=== PATIENT | male | born 1940 | race Caucasian/White ===

== ENCOUNTER 2017-04-07 22:54 | Emergency (ER) | payer MEDICARE, OTHER | END 2017-04-08 01:09 | disposition home or self-care (01) | LOC: FER 22:54 | DX: H60.92 Unspecified otitis externa, left ear (principal); H60.332 Swimmer's ear, left ear; I10 Essential (primary) hypertension; Z79.82 Long term (current) use of aspirin; Z79.899 Other long term (current) drug therapy; Z95.5 Presence of coronary angioplasty implant and graft | CPT/HCPCS: 99282 ==

== ENCOUNTER 2021-04-26 12:56 | Emergency (ER) | payer OTHER ==
[~2021-04-26 12:56] MED LIST: CIPRO500 M1 PO; CIPRO500 MG PO; FLOMAX0.4 MG PO; MEDROL 4MG DOSEP4 MG PO; VENTOLIN HFA IN18 GM INH
[2021-04-26 14:06] LABS: BASOPHIL 0.5 % (0-2); BILIRUBIN 2+ mg/dL (NEGATIVE); BLOOD 3+ Ery/uL (NEGATIVE); GLUCOSE (U) TRACE mg/dL (NORMAL); HCT 41.2 % (42.0-52.0); HGB 13.8 g/dl (13.2-18.0); LEUKOCYTES 2+ Leu/uL (NEGATIVE); MCH 29.9 pg (25.0-31.0); MCHC 33.5 g/dL (32.0-36.0); MCV 89.2 fL (78.0-100.0); MONOCYTE 9.5 % (0-12); MPV 10.1 fL (6.0-9.5); NEUTROPHIL 59.7 % (41-80); NITRITE POSITIVE (NEGATIVE); NRBC 0; PLT 151 K/uL (150-400); PROTEIN 3+ mg/dL (NEGATIVE); RBC 4.62 M/uL (4.70-6.00); RDW 13.3 % (11.5-14.0); SPECIFIC GRAVITY >=1.030 (1.001-1.030); WBC 7.3 K/uL (4.0-10.5); pH 6.5 (5.0-9.0)
[2021-04-26 14:09] LABS: CLARITY CLOUDY (CLEAR); COLOR AMBER (YELLOW)
[2021-04-26 14:12] LABS: BACTERIA TRACE; URINARY RBC TNTC
[2021-04-26 14:26] LABS: ALBUMIN 3.9 g/dL (3.4-5.0); BILIRUBIN - TOTAL 1.3 mg/dL (0.2-1.0); BUN/CREAT RATIO (CALC) 19.7 RATIO; CREATININE 0.76 mg/dL (0.67-1.17); GLOBULIN (CALCULATION) 3.9 g/dL; POTASSIUM 4.1 mmol/L (3.5-5.1); TOTAL PROTEIN 7.8 g/dL (6.4-8.2)
[2021-04-26] MEDS ORDERED: PYRIDIUM200 MG PO (18:51)
[2021-04-26] MEDS ORDERED: AUGMENTIN 500-1 EACH PO (18:51)
== END 2021-04-26 19:45 | disposition home or self-care (01) ==
LOC: FER 12:56
PROVIDERS: Emergency Medicine
DX: N30.91 Cystitis, unspecified with hematuria (principal); E11.9 Type 2 diabetes mellitus without complications; Z79.84 Long term (current) use of oral hypoglycemic drugs
CPT/HCPCS: 36415; 80053; 81001; 85025; 87076; 87088; 87186; 96365; J0696; J7030

== ENCOUNTER 2021-08-06 18:21 | Emergency (ER) | payer OTHER ==
[~2021-08-06 18:21] MED LIST changes: +AUGMENTIN 500-1 EACH PO; +PYRIDIUM200 MG PO
[2021-08-06 19:27] LABS: BASOPHIL 0.2 % (0-2); BILIRUBIN 1+ mg/dL (NEGATIVE); BLOOD 3+ Ery/uL (NEGATIVE); CLARITY CLOUDY (CLEAR); COLOR RED (YELLOW); EOSINOPHIL 0.3 % (0-7); GLUCOSE (U) 3+ mg/dL (NORMAL); HCT 32.3 % (42.0-52.0); HGB 10.5 g/dl (13.2-18.0); LEUKOCYTES NEGATIVE Leu/uL (NEGATIVE); LYMPHOCYTE 21.1 % (15-48); MCH 29.3 pg (25.0-31.0); MCHC 32.5 g/dL (32.0-36.0); MCV 90.2 fL (78.0-100.0); MONOCYTE 10.8 % (0-12); MPV 10.3 fL (6.0-9.5); NEUTROPHIL 65.1 % (41-80); NITRITE POSITIVE (NEGATIVE); NRBC 0.6; PLT 119 K/uL (150-400); PROTEIN 2+ mg/dL (NEGATIVE); RBC 3.58 M/uL (4.70-6.00); RDW 16.4 % (11.5-14.0); SPECIFIC GRAVITY 1.015 (1.001-1.030); UROBILINOGEN 0.2 mg/dL (0.2-1.0); WBC 6.4 K/uL (4.0-10.5)
[2021-08-06 19:34] LABS: BACTERIA TRACE; URINARY RBC TNTC
[2021-08-06 19:49] LABS: ALBUMIN 2.9 g/dL (3.4-5.0); BILIRUBIN - TOTAL 0.7 mg/dL (0.2-1.0); CREATININE 0.52 mg/dL (0.67-1.17); GLOBULIN (CALCULATION) 2.9 g/dL; POTASSIUM 4.6 mmol/L (3.5-5.1); TOTAL PROTEIN 5.8 g/dL (6.4-8.2)
== END 2021-08-06 23:55 | disposition home or self-care (01) ==
LOC: FER 18:21
PROVIDERS: Emergency Medicine
DX: E11.65 Type 2 diabetes mellitus with hyperglycemia (principal); N39.0 Urinary tract infection, site not specified; R53.83 Other fatigue; Z79.84 Long term (current) use of oral hypoglycemic drugs
CPT/HCPCS: 36415; 71045; 80053; 81001; 83036; 83880; 84443; 84484; 85025; 87040; 93005; 94760; J0696; J7030